=== PATIENT | male | born 1975 | race Caucasian/White ===

== ENCOUNTER → 2020-06-05 | Outpatient (CLI) | payer OTHER ==
[2014-06-05 13:10] VITALS: BP 128/91
[~2020-06-05] MED LIST: CIPR500T94 PO; HYDR-2678 PO; ONDA4TAB12 PO; OXYC1TAB15 PO; PHEN-318 PO; TAMS0.4C2 PO
--- NOTE | 2020-06-05 12:09 | KCIC ---
LUMBAR SPINE WO CONTRAST Date: 06/05/2020 10:15 AM Indication: LOW BACK PAIN / Spl. Instructions: / History: Acute low back on May 19, . Pain into left groin. Comparison: CT abdomen pelvis 06/17/2019. Technique: Multi-planar multi-weighted magnetic resonance imaging of the lumbar spine was performed without intravenous contrast using the standard lumbar spine protocol. FINDINGS: The lumbar spine is normally aligned. No acute fracture. Moderate degenerative disc desiccation and disc height loss at L4-5. Fatty degenerative endplate changes at L4-5. The conus terminates at a normal level. No abnormal signal is seen within the visualized distal spinal cord. No clumping of intrathecal nerve roots. No soft tissue abnormality in the visualized abdomen or pelvis. T12-L1: No disc bulge. No facet arthropathy. No significant spinal stenosis or neural foraminal narrowing. L1-L2: No disc bulge. No facet arthropathy. No significant spinal stenosis or neural foraminal narrowing. L2-L3: No disc bulge. No facet arthropathy. No significant spinal stenosis or neural foraminal narrowing. L3-L4: No disc bulge. No facet arthropathy. No significant spinal stenosis or neural foraminal narrowing. L4-L5: Disc bulge with annular tear. Mild facet arthropathy. Mild spinal stenosis. Mild right and moderate left lateral recess narrowing with abutment of the descending L5 nerve roots. Mild bilateral neural foraminal narrowing. L5-S1: Disc bulge. Mild facet arthropathy. No significant spinal stenosis or neural foraminal narrowing. IMPRESSION: Lumbar spondylosis, worst at L4-5 as detailed above. Electronically signed by: Conor Baldwin MD (06/05/2020 12:06 PM) [id number]
== END ==
LOC: KCIC MRI 10:03
PROVIDERS: ATTEND Family Medicine
DX: S39.012A Strain of muscle, fascia and tendon of lower back, initial encounter (principal); M47.817 Spondylosis without myelopathy or radiculopathy, lumbosacral region; X58.XXXA Exposure to other specified factors, initial encounter; Y93.89 Activity, other specified; Y92.89 Other specified places as the place of occurrence of the external cause; Y99.8 Other external cause status
CPT/HCPCS: 72148